=== PATIENT | female | born 1995 | race American Indian/Alaskan Native ===

== ENCOUNTER 2021-09-27 14:19 | Emergency (ER) | payer SELFPAY ==
[2021-09-27 14:30] VITALS: BP 124/83
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
== END 2021-09-27 16:02 | disposition home or self-care (01) ==
LOC: ED 14:19
DX: S00.511A Abrasion of lip, initial encounter (principal); M54.2 Cervicalgia; Y08.89XA Assault by other specified means, initial encounter; Y93.89 Activity, other specified; Y92.89 Other specified places as the place of occurrence of the external cause; Y99.8 Other external cause status
CPT/HCPCS: 72040; 99283